=== PATIENT | male | born 1960 | race Two or more races ===

== ENCOUNTER 2019-03-13 22:34 | Emergency (ER) | payer BC ==
[~2019-03-13] VITALS: Ht 170.2 cm; Wt 72.6 kg
[2019-03-14] MEDS ORDERED: ZOFRAN4 MG PO (03:46)
[2019-03-14] MEDS ORDERED: PEPCID40 MG PO (03:46)
== END 2019-03-14 03:48 | disposition home or self-care (01) ==
LOC: ER 22:34
DX: R55 Syncope and collapse (principal)